=== PATIENT | female | born 1985 | race Caucasian/White ===

== ENCOUNTER 2021-06-24 16:41 | Emergency (ER) | payer OTHER, SELFPAY ==
[2021-06-24 16:58] VITALS: BP 109/93; PULSE 58; RESP 16; TEMP 36.5; O2SAT 100
--- NOTE | 2021-06-24 17:05 | ED.GENADULT ---
HPI - General Adult General Chief complaint: Urogenital-Female Stated complaint: POS UTI Source: patient Mode of arrival: ambulatory Limitations: no limitations History of Present Illness HPI narrative: 35 y/o female. PMHx: None reported. Presents to [facility] today with acute complaints of urinary frequency, bladder 'pressure' and dysuria for the past 48 hours. She reports to feel as though her s/s are similar to symptoms she had before when she had a UTI . No fever, chills. No abdominal pain, flank pain, N/V. No vaginal discharge or hematuria. Pt is w/o additional acute c/o illness upon exam. Related Data Allergies Allergy/AdvReac Type Severity Reaction Status Date / Time No Known Allergies Allergy Verified 06/24/21 17:02 Review of Systems Review of Systems: CONSTITUTIONAL: Denies fever, chills, sweats. EYES: Denies visual changes, redness, discharge. ENT: Denies rhinorrhea, congestion, sore throat, otalgia. CARDIOVASCULAR: Denies chest pain, palpitations, edema. RESPIRATORY: Denies dyspnea, wheezing, cough GASTROINTESTINAL: Denies abdominal pain, nausea, vomiting, diarrhea. GENITOURINARY: Positive dysuria, frequency, bladder pressure. No hematuria, abnormal discharge SKIN: Denies rash or itching. MUSCULOSKELETAL: Denies acute back pain, joint pain, or myalgia. NEUROLOGIC: Denies numbness, or focal weakness. PSYCHIATRIC: Denies anxiety or depression. All systems reviewed & are unremarkable except as noted in HPI and below Exam Narrative: GENERAL: This is a well-nourished, well-developed adult, in no apparent distress. HEAD: normocephalic, atraumatic. EYES: PERRL. Sclera clear/white. EARS: External ears normal, auditory canals clear and without drainage, TMs normal. NOSE: External nose normal. No Rhinorrhea, no obstruction, nares patent. THROAT: Mucous membranes moist, posterior pharynx clear. No exudates. NECK: Neck supple, non-tender without lymphadenopathy, masses or thyromegaly. CARDIOVASCULAR: Regular rate and rhythm without murmurs, gallops, or rubs. RESPIRATORY: Clear to auscultation. Breath sounds equal bilaterally. No wheezes, rales, or rhonchi. GASTROINTESTINAL: Abdomen soft, non-tender, nondistended. Bowel sounds are active. No guarding. No CVA tenderness. SKIN: warm, intact with no suspicious lesions or rash, good texture and turgor. NEURO: Alert, active, and age appropriate. No focal neurologic deficits. EXTREMITIES: Negative. Course Course Emergency Course: -35 y/o female. -PMHx none. -Urinary S/S. Proceed with Urine Dipstick. Vital Signs Vital signs: Vital Signs Temperature 36.5 C 06/24/21 16:58 Pulse Rate 58 L 06/24/21 16:58 Respiratory Rate 16 06/24/21 16:58 Blood Pressure 109/93 H 06/24/21 16:58 Pulse Oximetry 100 06/24/21 16:58 Temperature 36.5 C 06/24/21 16:58 Pulse Rate 58 L 06/24/21 16:58 Respiratory Rate 16 06/24/21 16:58 Blood Pressure 109/93 H 06/24/21 16:58 Pulse Oximetry 100 06/24/21 16:58 Medical Decision Making MDM Narrative Medical decision making narrative: -Urine dipstick positive for 1+ Leukocytes, no nitrites. 2+ blood. -Afebrile, no signs of acute abdomen or CVA tenderness. -Start Macrobid ATB regimen for UTI, Urine sent for full Cx analysis. -Pyridium prn for symptomatic relief. -PCP F/U 1 WK. -ER w/emergent health status changes. Pt agrees. Medical Records Medical records reviewed: Yes I reviewed the external patient's medical records. Vital Signs Vital Signs: Vital Signs Temperature 36.5 C 06/24/21 16:58 Pulse Rate 58 L 06/24/21 16:58 Respiratory Rate 16 06/24/21 16:58 Blood Pressure 109/93 H 06/24/21 16:58 Pulse Oximetry 100 06/24/21 16:58 Temperature 36.5 C 06/24/21 16:58 Pulse Rate 58 L 06/24/21 16:58 Respiratory Rate 16 06/24/21 16:58 Blood Pressure 109/93 H 06/24/21 16:58 Pulse Oximetry 100 06/24/21 16:58 Lab Data Lab results reviewed: Yes I reviewed
== END 2021-06-24 17:23 | disposition home or self-care (01) ==
PROVIDERS: Emergency Provider Nurse Practitioner Adult Health
DX: N39.0 Urinary tract infection, site not specified (principal)
CPT/HCPCS: 81003; 87077; 87086; 87088; 87186; 99213; G0463

== ENCOUNTER → 2022-06-26 07:58 | Outpatient (CLI) | payer OTHER, SELFPAY ==
--- NOTE | ~2022-06-26 | MR_ITS ---
EXAMINATION: MR knee RT wo con DATE: 06/26/2022 08:26 INDICATION: Right knee pain TECHNIQUE: Magnetic resonance imaging (MRI) of the right knee was performed without intravenous contr ast. Sequences included coronal PD-weighted FSE, coronal PD-weighted FS FSE, sagittal T2-weighted FS E, sagittal PD-weighted FS FSE and axial PD weighted fat saturated FSE. COMPARISON: None. FINDINGS: Medial compartment: Complex tear of the posterior horn of the medial meniscus which begins laterally along the free edge and extends obliquely in all 3 planes peripherally and medially along both the superior and inferior articular surfaces to the periphery of the junction of the body and posterior horn. 1.4 x 1.5 x 0.6 c m multilobulated ganglion cyst in the soft tissues along the anterior margin of the pes anserinus pot entially representing a prior labral cyst arising from the meniscal tear. Chondral surface regularity and likely shallow fissuring at the posterior weightbearing medial femoral condyle. Lateral compartment: Lateral meniscus is normal. Articular cartilage is normal. Patellofemoral compartment: Thickness chondral ulceration and deep fissuring at both the medial lateral patellar facets as well a s intervening apical ridge where there is mild subarticular edema-like signal change. Additional deep chondral fissuring at the cephalad aspect of the trochlear groove and scattered along the lateral tr ochlea where there is a tiny focus of subtle edema-like subarticular signal change. Ligaments and tendons: Posterior cruciate ligament is normal. Postoperative changes of prior anterior cruciate ligament denisse nstruction with patellar tendon autograft. Normal intact appearance of the graft. The medial collater al ligament and fibular collateral ligament complex are normal. The extensor mechanism is normal. The visualized medial and lateral hamstring tendons as well as the iliotibial band are normal. Fluid: Small right knee joint effusion. No loose osteochondral bodies identified. Osseous/other: Bone alignment is normal. No fracture or pathologic marrow replacing process. IMPRESSION: 1. Intact anterior cruciate ligament reconstruction utilizing patellar tendon autograft. 2. Complex tear at the posterior horn of the medial meniscus. 3. 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 Reviewed, dictated and finalized at [facility]. IMPRESSION: 1. Intact anterior cruciate ligament reconstruction utilizing patellar tendon a utograft. 2. Complex tear at the posterior horn of the medial meniscus. 3. Mild medial and patellofemoral osteoarthritis with extensive moderate high-g rade chondromalacia at the patellofemoral compartment.
== END ==
PROVIDERS: PCP Physician Assistant; Visit Provider Physician Assistant
DX: S83.511A Sprain of anterior cruciate ligament of right knee, initial encounter (principal); X58.XXXA Exposure to other specified factors, initial encounter; S83.231A Complex tear of medial meniscus, current injury, right knee, initial encounter; M17.11 Unilateral primary osteoarthritis, right knee
CPT/HCPCS: 73721

== ENCOUNTER 2022-08-07 11:53 | Emergency (ER) | payer OTHER, SELFPAY ==
[2022-08-07 12:09] VITALS: BP 122/85; PULSE 64; RESP 16; TEMP 36.9; O2SAT 100
--- NOTE | 2022-08-07 12:27 | ED.FEMALEGU ---
HPI - Female Genitourinary General Chief complaint: Urogenital-Female Stated complaint: uti symptoms Time Seen by Provider: 08/07/22 12:18 Source: patient, RN notes reviewed and old records reviewed Mode of arrival: ambulatory Limitations: no limitations History of Present Illness HPI Narrative: 36-year-old female who presents to [place] hospital care with complaints of frequency of urination, burning with urination, for 3 days with some supra pubic pressure and also some flank pain. Patient reports that she has had UTI before, denies any vaginal drainage or itching. Patient denies any concern for STD. Patient denies any fevers, chills, or sweats, patient denies any nausea or vomiting or diarrhea.Patient denies last menses 07/31/2022. Patient reports that she has increased her oral intake of water. MD elicited complaint: dysuria and UTI Pertinent past history: other (previous UTI) Onset (ago): day(s) (3) Related Data Home Medications Medication Instructions Recorded Confirmed vits no.[id number]-ferrous fum 1 tablet DAILY 08/07/22 08/07/22 28 mg iron-folic acid 800 mcg tablet (Classic ) Allergies Allergy/AdvReac Type Severity Reaction Status Date / Time No Known Allergies Allergy Verified 06/24/21 17:02 Review of Systems Review of Systems: CONSTITUTIONAL: Denies fever, chills, or sweats. EYES: Denies visual changes, redness, or discharge. ENT: Denies rhinorrhea, congestion, sore throat, or otalgia. CARDIOVASCULAR: Denies chest pain, palpitations, or edema. RESPIRATORY: Denies cough or dyspnea. GASTROINTESTINAL: Denies abdominal pain,reports some suprapubic tenderness, nausea, vomiting, or diarrhea. GENITOURINARY: Positive dysuria no visible hematuria. SKIN: Denies rash or itching. MUSCULOSKELETAL: Denies back pain, joint pain, or myalgia. NEUROLOGIC: Denies headache, numbness, or weakness. PSYCHIATRIC: Denies anxiety or depression. All systems reviewed & are unremarkable except as noted in HPI and below PMFSH Past Medical History Medical History (Updated 08/07/22 @ 13:18 by Anabel Walter NP) UTI (urinary tract infection) Surgical History Surgical History (Updated 08/07/22 @ 13:19 by Anabel Walter NP) History of repair of ACL bilateral knees and meniscus repair Social History Social History (Updated 08/07/22 @ 13:17 by Anabel Walter NP) Smoking status: Never smoker Alcohol intake: current Alcohol use details: Social Substance use type: does not use Living arrangements: with family Gender identity (if verbalized by the patient): Female Comments At time of signature, agree with nursing past medical, surgical, social and family history. There is no relevant family history pertinent to the presenting complaint Exam Narrative: GENERAL: Well-appearing, well-nourished, and in no acute distress. HEAD: Normocephalic, atraumatic. EYES: PERRLA and EOMI. ENT: Nares clear, no rhinorrhea or epistaxis. Mucous membranes moist.TM's normal with good light reflex, throat pink with no lesions or swelling NECK: Supple.no lymphadenopathy CHEST: Clear to auscultation. No respiratory distress.SAO2 100% on room air HEART: Regular rate and rhythm. No murmur heard. Normal peripheral pulses. ABDOMEN: Soft, tender suprapubic, nondistended, normal active bowel sounds,bilateral flank pain on examination denies any radiation of pain, urinary frequency,urgency, and and burning reported EXTREMITIES: Normal range of motion. No edema. SKIN: Warm, dry, no rash. NEURO: No focal deficits. Alert and oriented x3. Course Course Level of Care: Express Care Visit Vital Signs Vital signs: Vital Signs Temperature 36.9 C 08/07/22 12:09 Pulse Rate 64 08/07/22 12:09 Respiratory Rate 16 08/07/22 12:09 Blood Pressure 122/85 08/07/22 12:09 Pulse Oximetry 100 08/07/22 12:09 Temperature 36.9 C 08/07/22 12:09 Pulse Rate 64 08/07/22 12:09 Respiratory Rate 16 08/07/22 12:09
== END 2022-08-07 12:41 | disposition home or self-care (01) ==
PROVIDERS: Emergency Provider Registered Nurse
DX: N39.0 Urinary tract infection, site not specified (principal)
CPT/HCPCS: 81003; 87077; 87086; 87186; 99213; G0463

== ENCOUNTER 2022-09-09 15:43 | Emergency (ER) | payer OTHER, SELFPAY ==
[2022-09-09 15:46] VITALS: BP 112/84; PULSE 56; RESP 15; TEMP 36.6; O2SAT 100
--- NOTE | 2022-09-09 15:50 | ED.SKABFB ---
HPI - Skin/Abscess/Foreign Bdy General Chief complaint: Skin/Abscess/Foreign Body Stated complaint: RASH Time Seen by Provider: 09/09/22 15:50 Source: patient, RN notes reviewed and old records reviewed Mode of arrival: ambulatory Limitations: no limitations History of Present Illness HPI narrative: 36-year-old female presents to the [facility] with a rash to her bilateral medial aspect upper arms for several months that have been intermittent. This episode started several days ago. Spread into her bilateral breasts. States that she normally takes Zyrtec headache goes away. He denies any new creams, lotions, detergents. No new clothes. No new foods. Describes it as itching if not burning sometimes. Related Data Allergies Allergy/AdvReac Type Severity Reaction Status Date / Time No Known Allergies Allergy Verified 09/09/22 15:44 Review of Systems Review of Systems: All systems reviewed & are unremarkable except as noted in HPI and below Constitutional: Constitutional: Reports no additional constitutional complaints, Denies chills and Denies fever(s) Eyes: Eyes: Reports no additional eye complaints ENT: Reports system reviewed and no additional complaints, except as documented Cardiovascular: Cardiovascular: Reports no additional cardiovascular complaints Respiratory: Respiratory: Reports no additional respiratory complaints Gastrointestinal: Gastrointestinal: Reports no additional gastrointestinal complaints Musculoskeletal: Musculoskeletal: Reports no additional musculoskeletal complaints Integumentary/Breasts: Skin/Breast: Reports as per HPI and Reports rash Neurologic: Reports system reviewed and no additional complaints, except as documented Psychiatric: Psychiatric: Reports no additional psychiatric complaints Allergic/Immunologic: Allergic/Immunologic: Reports no additional allergic/immunologic complaints [facility] Past Medical History Medical History UTI (urinary tract infection) Surgical History Surgical History History of repair of ACL bilateral knees and meniscus repair Social History Social History Smoking status: Never smoker Alcohol intake: current Alcohol use details: Social Substance use type: does not use Gender identity (if verbalized by the patient): Female Comments At the time of my signature, I reviewed and agree with the nursing past medical, surgical, social, and family history. There is no relevant family history pertinent to the patient complaint. Exam Const: General: healthy appearing, no acute distress, alert and well nourished Nutritional Appearance: well nourished Orientation/consciousness: patient oriented x3 Limitations: no limitations HENMT: Head: normal to inspection Ears: external ears normal Face/Nose/Sinus: Normal external nose present Eyes: General: appearance normal, both eyes and all related structures Conjunctivae: conjunctivae normal Pupils: Equal, round and reactive pupils present Neck: Neck: normal visual inspection, no lymphadenopathy and no meningeal signs Chest: Chest palpation & inspection: normal inspection of the chest Resp: Effort & Inspection: normal respiratory effort and no use of accessory muscles Auscultation: clear to auscultation bilaterally, no crackles, no rales, no rhonchi and no wheezes Cardio: Rate: regular rate Rhythm: regular rhythm Skin: General skin exam: normal color Rashes: rashes noted (Bilateral upper arms medial aspect) Bilateral medial arms upper arrangement grouped, color (Skin color) with a non-erythematous base and surface dry, flaking, purpuric and rough; not erythematous, not indurated, not warm and without crusting; fluctuant not assessed Wounds: no wounds Other: Rash also extends across the top of breast Neuro: General: patient oriented
== END 2022-09-09 16:03 | disposition home or self-care (01) ==
PROVIDERS: Emergency Provider Nurse Practitioner; PCP Obstetrics & Gynecology
DX: L25.9 Unspecified contact dermatitis, unspecified cause (principal)
CPT/HCPCS: 99213; G0463

== ENCOUNTER 2023-02-11 17:12 | Emergency (ER) | payer OTHER, SELFPAY ==
[2023-02-11 17:15] VITALS: BP 119/81; PULSE 62; RESP 16; TEMP 36.6; O2SAT 100
--- NOTE | 2023-02-11 17:17 | ED.EAR ---
HPI - Ear Problem General Chief complaint: Ear Stated complaint: EARACHE Time Seen by Provider: 02/11/23 17:31 Source: patient and RN notes reviewed Mode of arrival: ambulatory Limitations: no limitations History of Present Illness HPI Narrative: 37-year-old female presents concern for right ear pain yesterday. She reports several day history of congestion, rhinorrhea, productive cough which she has been taking DayQuil. For she had a low-grade temperature this morning. She reports tinnitus, denies drainage from the ear MD Complaint: ear pain Related Data Allergies Allergy/AdvReac Type Severity Reaction Status Date / Time No Known Allergies Allergy Verified 02/11/23 17:22 Review of Systems Review of Systems: CONSTITUTIONAL: Denies malaise, chills,. Reports low-grade fever. EYES: Denies visual changes, redness, or discharge. ENT: Reports rhinorrhea, congestion. She sinus pain, and sore throat. Reports right ear pain CARDIOVASCULAR: Denies chest pain, palpitations, or edema. RESPIRATORY: Denies cough. Denies dyspnea. GASTROINTESTINAL: Denies abdominal pain, nausea, vomiting, diarrhea SKIN: Denies rash or itching. MUSCULOSKELETAL: Denies myalgia. NEUROLOGIC: Denies headache. All systems reviewed & are unremarkable except as noted in HPI and below PMFSH Past Medical History Medical History delivery delivered xs 3 UTI (urinary tract infection) Surgical History Surgical History H/O gynecological procedure Mirena 07/11/21 History of repair of ACL bilateral knees and meniscus repair Family History Family History Other Alzheimer's disease Malignant lymphoma Social History Social History (Updated 10/29/22 @ 08:22 by Ivett Chavez MA) Smoking status: Never smoker Alcohol intake: current Alcohol use details: Social Substance use type: does not use Living arrangements: with family Occupation/Education: occupation 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 There is no relevant family history pertinent to the presenting complaint Exam Narrative: GENERAL: Well-appearing, well-nourished, and in no acute distress. HEAD: Normocephalic EYES: PERRLA, conjunctivae clear ENT: Nares clear, turbinates edematous, clear discharge. Mucous membranes moist. TM pearly hughes with dull light reflex bilaterally; no tragal tenderness. Oropharynx not erythematous without lesions. Tonsils not enlarged and without exudate, no drooling, no hoarseness, no trismus, uvula midline. NECK: Supple. No lymphadenopathy CHEST: Clear to auscultation, breath sounds equal. No wheezing, rhonchi, rales, or stridor. No respiratory distress, speaks in full sentences. HEART: Regular rate and rhythm. No murmur heard. SKIN: Warm, dry, no rash. NEURO: Alert and oriented x3. PSYCH: Normal mood and affect Course Course Emergency Course: Patient is aware of diagnosis, understands and agrees to treatment plan. Anticipatory guidance given. Patient agrees to follow-up as directed and is aware of reasons to seek care at the emergency department. Portions of this record may have been created with voice recognition software Level of Care: Express Care Visit Vital Signs Vital signs: Reviewed. Medical Decision Making MDM Narrative Medical decision making narrative: Differential diagnosis considered: Childs virus, strep pharyngitis, allergic rhinitis, upper respiratory tract infection, sinusitis, rhinosinusitis, nasopharyngitis. viral pharyngitis, otitis media, otitis externa, otitis effusion, cerumen impaction, for
== END 2023-02-11 17:42 | disposition home or self-care (01) ==
PROVIDERS: Emergency Provider Nurse Practitioner
DX: H66.91 Otitis media, unspecified, right ear (principal)
CPT/HCPCS: 99213; G0463

== ENCOUNTER → 2024-01-04 08:44 | Outpatient (CLI) | payer OTHER, SELFPAY ==
--- NOTE | ~2024-01-04 | US_ITS ---
Pelvic ultrasound. Clinical History: Abnormal endocrine levels Technique: Realtime transabdominal and transvaginal scanning of the pelvis was performed. Color flow Doppler and Doppler spectral analysis were performed. Findings: The uterus is anteverted. The endometrial stripe has a thickness of 6 mm. IUD in satisfact ory position. No focal mass is identified. The right ovary measures 2.2 x 1.9 x 1.9 cm. No significant right ovarian or adnexal mass is seen. The left ovary measures 3.1 x 2.6 x 2.4 cm. No significant left ovarian or adnexal mass is seen. Vascular flow present in both ovaries on Doppler spectral analysis. There is no evidence of free fluid in the cul de sac. Impression: IUD in satisfactory position, otherwise no significant abnormality seen. Reviewed, dictated and finalized at [facility]. R DIPPER Impression: IUD in satisfactory position, otherwise no significant abnormality seen.
== END ==
PROVIDERS: PCP Obstetrics & Gynecology; Visit Provider Obstetrics & Gynecology
DX: R79.89 Other specified abnormal findings of blood chemistry (principal); Z97.5 Presence of (intrauterine) contraceptive device
CPT/HCPCS: 76830; 76856

== ENCOUNTER 2024-01-11 16:07 | Emergency (ER) | payer OTHER, SELFPAY ==
[2024-01-11 16:15] VITALS: BP 112/87; PULSE 53; RESP 16; TEMP 36.6; O2SAT 100
--- NOTE | 2024-01-11 16:46 | ED.URI ---
HPI - URI/Sore Throat General Chief Complaint: Upper Respiratory Infection Stated Complaint: Flu Symptoms Time Seen by Provider: 01/11/24 16:39 Source: patient and RN notes reviewed Mode of arrival: ambulatory Limitations: no limitations History of Present Illness HPI Narrative: Patient presents today with a one-week history of fatigue, cough, congestion. States she had a fever up to 102 initially, but this resolved several days ago. Reports her symptoms have started improving over the last 2 days. She was exposed to mononucleosis. She has been having some chronic symptoms recently in her PCP wanted her to be evaluated for COVID, flu, and mono. She has been taking some cold and flu medication with some mild relief. Denies shortness of breath or chest pain. Related Data Home Medications Medication Instructions Recorded Confirmed No Home Medications 01/11/24 01/11/24 Allergies Allergy/AdvReac Type Severity Reaction Status Date / Time adhesive AdvReac Mild Rash Verified 01/11/24 16:41 Review of Systems Review of Systems: CONSTITUTIONAL: Denies body aches, chills, or sweats.+ fatigue. Fever-resolved EYES: Denies visual changes, redness, or discharge. ENT: Denies rhinorrhea, sore throat, or otalgia.+ congestion CARDIOVASCULAR: Denies chest pain, palpitations, or edema. RESPIRATORY: Denies r dyspnea.+ cough GASTROINTESTINAL: Denies abdominal pain, nausea, vomiting, or diarrhea. GENITOURINARY: Denies dysuria or hematuria. SKIN: Denies rash, itching, or wounds. MUSCULOSKELETAL: Denies back pain, joint pain, or myalgia. NEUROLOGIC: Denies headache, numbness, tingling, or weakness. PSYCH: Denies depression or anxiety. [facility] Past Medical History Medical History delivery delivered xs 3 UTI (urinary tract infection) Surgical History Surgical History H/O gynecological procedure Mirena 07/11/21 History of repair of ACL bilateral knees and meniscus repair Family History Family History Sibling Skin cancer Other Alzheimer's disease Malignant lymphoma Social History Social History Smoking status: Never smoker Alcohol intake: current Alcohol use details: Social Substance use type: does not use Do You Feel Safe in your Home?: Yes Lack of Transportation: No Lack of Food: Never True Current Housing: I Have Housing Concerned About Future Housing: No Difficulty Paying Gas/Electric Bills: No Difficulty Paying for Meds: No Currently Unemployed: No Education: Master's Degree or Higher Difficulty w/ Childcare or Family Care: No Living arrangements: with family Occupation/Education: occupation 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 Please see nursing chart for further information. There is no relevant family history pertinent to the presenting complaint Exam Narrative: GENERAL: Well-appearing, well-nourished, and in no acute distress. HEAD: Normocephalic, atraumatic. EYES: EOMI. No redness or drainage. Conjunctivae normal. ENT: Mucous membranes pink and moist. Nares clear. No rhinorrhea. TMs normal bilaterally. Throat normal. Uvula midline. NECK: Normal AROM. Supple. No lymphadenopathy. CHEST: No respiratory distress. Clear to auscultation. HEART: Regular rate and rhythm. No murmur appreciated. EXTREMITIES: Normal range of motion. No edema. SKIN: Warm, dry, no rash. Capillary refill normal. Normal skin turgor. NEUR
== END 2024-01-11 16:52 | disposition home or self-care (01) ==
PROVIDERS: Emergency Provider Nurse Practitioner; PCP Obstetrics & Gynecology
DX: U07.1 COVID-19 (principal)
CPT/HCPCS: 36416; 86308; 87426; 87804; 99213; G0463

== ENCOUNTER 2024-02-09 09:00 | Outpatient (CLI) | payer OTHER, SELFPAY ==
--- NOTE | ~2024-02-09 | CT_ITS ---
EXAMINATION: CT abdomen wo con DATE: 02/09/2024 09:21 INDICATION: Elevated DHEA and testosterone TECHNIQUE: Computed tomography (CT) of the abdomen was performed without intravenous contrast. [facility] exposure control and iterative reconstruction technique were employed. Exam dose: 294.84 mGy-cm total exam DLP. COMPARISON: None. FINDINGS: The lung bases are clear. Normal heart size. No pericardial or pleural effusion. The liver, gallbladder, bile ducts, spleen, pancreas, pancreatic duct, and adrenal glands and kidneys appear normal. No renal calculus or hydronephrosis. Normal caliber of the abdominal aorta. No intraperitoneal or retroperitoneal mass lesion or adenopath y or ascites. There are nonspecific shotty nonenlarged periaortic and aortocaval lymph nodes. IMPRESSION: No adrenal hypertrophy or adrenal mass lesion is noted. (The ovaries are not included in this examination to evaluate for polycystic ovaries which may be ass ociated with elevated DHEA testosterone.) Reviewed, dictated and finalized at [facility]. Reviewed, dictated and finalized at [facility]. IMPRESSION: No adrenal hypertrophy or adrenal mass lesion is noted. (The ovaries are not included in this examination to evaluate for polycystic ov gema which may be associated with elevated DHEA testosterone.)
== END 2024-02-09 09:01 ==
LOC: GOSHIMG 09:01
PROVIDERS: PCP Obstetrics & Gynecology; Visit Provider Obstetrics & Gynecology
DX: R79.89 Other specified abnormal findings of blood chemistry (principal)
CPT/HCPCS: 74150

== ENCOUNTER 2025-08-19 13:31 | Emergency (ER) | payer OTHER, SELFPAY ==
[2025-08-19 13:50] VITALS: BP 113/75; PULSE 72; RESP 16; TEMP 36.3; O2SAT 98
[2025-08-19 13:58] LABS: EDUAAPPEAR Cloudy; EDUABILI Negative (Negative); EDUABLOOD Negative (Negative); EDUACOLOR1 Yellow; EDUAGLUCOSE Negative (Negative); EDUAKETONE Negative (Negative); EDUALEUKO Trace (Negative); EDUANITRATE Negative (Negative); EDUAPH 6.0; EDUAPROTEIN Negative (Negative); EDUASPGRAVITY 1.015; EDUAUROBILI 0.2
--- NOTE | 2025-08-19 14:04 | ED.FEMALEGU ---
HPI - Female Genitourinary General Chief complaint: Urogenital-Female Stated complaint: Uti Symptoms Patient presents to the office with bladder pressure and frequent urination that began over the last couple days. Patient does report she is currently 25 weeks and does feel like baby is slightly low. Noted that she does have a scheduled appointment with Ob in 4 days. Denies any complications with . Denies history of frequent or hard to treat UTIs. Denies abdominal pain, vaginal bleeding, vaginal discharge, fever, chills, body aches, or lower back pain. Related Data Home Medications ?Medication ?Instructions ?Recorded ?Confirmed ?Last Taken ?Type estradiol 1 mg tablet (Estrace) 1 mg PO BID 09/02/24 Unknown History Allergies Allergy/AdvReac Type Severity Reaction Status Date / Time adhesive AdvReac Mild Rash Verified 09/02/24 14:42 Review of Systems Constitutional: Constitutional: Reports as per HPI, Denies chills and Denies fatigue Eyes: Eyes: Reports no additional eye complaints ENT: Reports system reviewed and no additional complaints, except as documented Cardiovascular: Cardiovascular: Reports no additional cardiovascular complaints Respiratory: Respiratory: Reports no additional respiratory complaints Gastrointestinal: Gastrointestinal: Reports as per HPI, Denies abdominal pain, Denies diarrhea, Denies nausea and Denies vomiting Genitourinary: Genitourinary: Reports as per HPI, Denies abnormal vaginal bleeding, Denies hematuria, Reports nocturia, Denies genital lesions, Denies dysuria, Denies pelvic pain, Denies flank pain, Denies urinary incontinence and Denies vaginal discharge Musculoskeletal: Musculoskeletal: Reports as per HPI, Denies back pain and Denies myalgias Integumentary/Breasts: Skin/Breast: Reports system reviewed and no additional complaints, except as docu Neurologic: Reports system reviewed and no additional complaints, except as documented Psychiatric: Psychiatric: Reports no additional psychiatric complaints Endocrine: Endocrine: Reports no additional endocrine complaints Hematologic/Lymphatic: Hematologic/Lymphatic: Reports no additional hematologic/lymphatic complaints Allergic/Immunologic: Allergic/Immunologic: Reports no additional allergic/immunologic complaints PMFSH Past Medical History Medical History delivery delivered xs 3 UTI (urinary tract infection) Surgical History Surgical History H/O gynecological procedure Mirena 07/11/21 History of repair of ACL bilateral knees and meniscus repair Family History Family History Sibling Skin cancer Other Alzheimer's disease Malignant lymphoma Social History Social History Smoking status: Never smoker Alcohol intake: current Alcohol use details: Social Substance use type: does not use Do You Feel Safe in your Home?: Yes Lack of Transportation: No Lack of Food: Never True Current Housing: I Have Housing Concerned About Future Housing: No Difficulty Paying Gas/Electric Bills: No Difficulty Paying for Meds: No Currently Unemployed: No Education: Master's Degree or Higher Difficulty w/ Childcare or Family Care: No Living arrangements: with family Occupation/Education: occupation 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 Gender identity (if verbalized by the patient): Female Sexual Orientation (if Verbalized by the Patient): Straight or Heterosexual Exam Const: General: healthy appearing and no acute distress Nutritional Appearance: well nourished Orientation/consciousness: patient oriented x3 Limitations: no limitations Resp: Effort & Inspection: normal respiratory effort Auscultation: clear to auscultation bilaterally Cardio: Rate: regular rate Rhythm: regular rhythm GI: Inspection: non-distended GI Palp: Yes Soft to palpation, No Tenderness to palpation present (GI) and No Guarding due to palpation present (GI) Auscultation: normal bowel sounds : General: Yes bladder normal to palpation and Yes no CVA tenderness Back/Spine/Pelvis: Back: no CVA tenderness Skin: General skin exam: normal color Rashes: no rashes Wounds: no wounds Neuro: General: patient oriented x3 Speech: normal speech Gait exam (Neuro): Normal gait present Extrem: General: normal to inspection, no clubbing, cyanosis or edema and no pedal edema Psych: Appearance: grossly normal Mental Status: mental status grossly normal Affect: normal affect Attitude: cooperative Course Course Level of Care: Express Care Visit Vital Signs Vital signs: Vital Signs Temperature 97.4 F L 08/19/25 13:50 Pulse Rate 72 08/19/25 13:50 Respiratory Rate 16 08/19/25 13:50 Blood Pressure 113/75 08/19/25 13:50 Pulse Oximetry 98 08/19/25 13:50 Temperature 97.4 F L 08/19/25 13:50 Pulse Rate 72 08/19/25 13:50 Respiratory Rate 16 08/19/25 13:50 Blood Pressure 113/75 08/19/25 13:50 Pulse Oximetry 98 08/19/25 13:50 MDM - Female Genitourinary MDM Narrative Medical decision making narrative: UA obtained. No blood, protein or ketones noted. Patient currently will treat for UTI The patient was evaluated by myself in the [facility] care. History is obtained from patient who is an independent historian and physical exam was performed. Available medical records were reviewed at this time. Exam findings show no acute concerns or changes; patient is non-toxic appearing and is in no distress. Patient is appropriate for outpatient treatment and follow-up. I have evaluated and discussed social determinants of health with the patient that could potentially impact subsequent diagnosis and treatment plans. Differential diagnosis and treatment plan were discussed with the patient. Patient agrees with discussion and after shared medical decision making agrees with plan of care. All questions were answered to the patient's satisfaction. Differential Diagnosis Differential diagnosis: Likely urinary tract infection, cervicitis, vaginitis and cystitis Medical Records Attestation: I reviewed the patient's medical records. Lab Data Attestation: I reviewed the patient's lab results. Labs: Lab Results 08/19/25 Range/Units 13:55 POC Urine Color Yellow POC Urine Clarity Cloudy POC Urine pH 6.0 POC Ur Specif [place] 1.015 POC Urine Protein Negative (Negative) POC Ur Glucose (UA) Negative (Negative) POC Urine Ketones Negative (Negative) POC Urine Blood Negative (Negative) POC Urine Nitrite Negative (Negative) POC Urine Bilirubin Negative (Negative) POC Urine Urobilinogen 0.2 POC U Leukocyte Esteras Trace (Negative) Discharge Plan Discharge Clinical Impression: Cystitis Patient Disposition: Home Condition: Stable Instructions: Antibiotic Form, Urinary Tract Infection in (ED) Additional Instructions: We will send a urine culture off to the lab; if the culture identifies an organism that the prescribed antibiotic will not treat, you will receive a phone call from an urgent care staff member and an appropriate antibiotic will be prescribed. -Your symptoms should begin to improve within a day of starting antibiotics. But you should finish all the antibiotic pills you get. Otherwise your infection might come back. -Also recommend: drink more fluid. It might help flush out germs, and it does no harm -Tylenol as needed for pain -Follow-up with your primary care provider for urine recheck OR if your symptoms persist, change or worsen significantly before you can contact your personal physician then please, without delay, go to the emergency department for further evaluation. Patient Language: Albanian Prescriptions: New nitrofurantoin monohyd/m-cryst [Macrobid] 100 mg capsule 100 mg PO Q12H 5 Days Qty: 10 0RF Rx Instructions: must administer with a meal/food No Action estradiol [Estrace] 1 mg tablet 1 mg PO BID Follow-up/Referrals: Nhan Slater MD [Primary Care Provider, AIRPLANE DESIGNER] Time of Disposition: 14:08
== END 2025-08-19 14:10 | disposition home or self-care (01) ==
PROVIDERS: Emergency Provider Nurse Practitioner Family; PCP Obstetrics & Gynecology
DX: O23.12 Infections of bladder in pregnancy, second trimester (principal); N30.90 Cystitis, unspecified without hematuria; Z3A.25 25 weeks gestation of pregnancy
CPT/HCPCS: 81003; 87086; 99213; G0463

== ENCOUNTER 2025-09-08 11:15 | Outpatient (RCR) | payer OTHER, SELFPAY ==
--- OUTSIDE RECORDS SUMMARY | 2025-09-07 09:42 | XMS_ITS | Encounter Summary ---
Author Organization [facility] Address [address] [place] [address] Phone Care Team Providers Care Overedger Name Role Phone Unknown, Notinfile Primary Care Provider Unavail able Jose Redding Unavailable [phone] Nicole Kraft NP Primary Care Provider [phone] Morenita Gale MD Unavailable Encounter Details Date Type Department Care Team (Latest Contact Info) Description 12/23/2023 Orders Only [facility] EML Scanning, Provider Social History Tobacco Use Types Packs/Day Years Used Date Smoking Tobacco: Never Smokeless Tobacco: Never AUDIT-C Answer Date Recorded Q1: How often do you have a drink containing alc ohol? Monthly or less 07/03/2022 Q2: How many drinks containi ng alcohol do you have on a typical day when you are drinking? 1 or 2 07/03/2022 Q3: How often do you have si x or more drinks on one occasion? 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 Gender Identity Not on file Sexual Orientation Not on file documented as of this encounter Plan of Treatment Not on file documented as of this encounter Procedures Procedure Name Priority Date/Time Associated Diagnosis Comments SCAN - LABS 12/23/2023 documented in this encounter Results * SCAN - LABS (12/23/2023) us Provider Scanning Final Result documented in this encounter Visit Diagnoses Not on filedocumented in this encounter Care Teams Overedger Relationship Specialty Start Date End Date Unknown, Notinfile PCP - General 06/19/22 03/14/24 Nicole Kraft NP [address] [place] [address] PCP - General Family Medicine 03/15/24 Jose Redding PA [address] [place] [address] Physician Tooth Cutter Orthopedic Surgery 07/03/22 Morenita Gale MD [address] [place] [address] Obstetrics and Gynecology 03/15/24 documented as of this encounter
--- OUTSIDE RECORDS SUMMARY | 2025-09-07 09:42 | XMS_ITS | Encounter Summary ---
Author Organization [facility] Address [address] [place] [address] Phone Care Team Providers Care Stream Control Officer Name Role Phone Jose Redding Unavailable [phone] Nicole Kraft NP Primary Care Provider [phone] Morenita Gale MD Unavailable [phone] Encounter Details Date Type Department Care Team (Latest Contact Info) Description 03/17/2024 Orders Only [facility] EML Scanning, Provider Social History Tobacco Use Types Packs/Day Years Used Date Smoking Tobacco: Never Cigarettes Smokeless Tobacco: Never AUDIT-C Answer Date Recorded Q1: How often do you have a drink containing alc ohol? Monthly or less 07/03/2022 Q2: How many drinks containi ng alcohol do you have on a typical day when you are drinking? 1 or 2 07/03/2022 Q3: How often do you have si x or more drinks on one occasion? 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 Gender Identity Not on file Sexual Orientation Not on file documented as of this encounter Plan of Treatment Not on file documented as of this encounter Procedures Procedure Name Priority Date/Time Associated Diagnosis Comments SCAN - LABS 03/17/2024 documented in this encounter Results * SCAN - LABS (03/17/2024) us Provider Scanning Final Result documented in this encounter Visit Diagnoses Not on filedocumented in this encounter Care Teams Stream Control Officer Relationship Specialty Start Date End Date Nicole Kraft NP [address] [place] [address] PCP - General Family Medicine 03/15/24 Jose Redding PA [address] [facility] [place] [address] Physician Slitter Creaser Slotter Helper Orthopedic Surgery 07/03/22 Morenita Gale MD [address] [place] [address] Obstetrics and Gynecology 03/15/24 documented as of this encounter
--- OUTSIDE RECORDS SUMMARY | 2025-09-07 09:42 | XMS_ITS | Clinical Summary ---
Author Organization [address] Address [address] [place] [address] Care Team Providers Care Tire Buffer Name Role Phone Jose Redding Unavailable Nicole Kraft NP Primary Care Provider [phone] Morenita Gale MD Unavailable [phone] Allergies Active Allergy Reactions Criticality Noted Date Comments Adhesive Rash Medium 12/06/2015 Medications biotin 1 mg capsule Take by mouth Active cholecalciferol (VITAMIN D-3) 5,000 unit capsule Take 1 capsule (5,000 Units total) by mouth daily Active ascorbic acid (ascorbic acid with ari hips) 500 mg tablet,chewable Take 1 tablet/chew tab (500 mg total) by mouth daily Active ferrous sulfate 325 mg (65 mg of elemental iron) tabletIndicatio ns:Iron Deficiency Anemia Take 65 mg of elemental iron by mouth daily with breakfast Active zinc 50 mg tablet Take by mouth Active ondansetron (ZOFRAN) 4 mg tabletIndicatio ns:Prevention of Post-Operative Nausea and Vomiting Take 1 tablet (4 mg total) by mouth every 6 (six) hours as needed for nausea or vomiting 20 tablet 1 2 Active Additional Information Patient not taking.Reported on 03/15/2024 aspirin 81 mg enteric coated tabletIndicatio ns:prevention of thrombosis Take 1 tablet (81 mg total) by mouth 2 (two) times a day for 14 days 28 tablet 2 Active Additional Information Patient not taking.Reported on 06/13/2024 HYDROcodone-marino taminophen (NORCO) 5-325 mg per tabletIndicatio ns:Pain Take 1 tablet by mouth every 6 (six) hours as needed for pain 15 tablet 2 Active Additional Information Patient not taking.Reported on 03/15/2024 mv,iron,min-fol ic acid-biotin 66.7-1,666.7 mcg capsule Take 1 tablet by mouth daily Active levonorgestreL (MIRENA) IUD 1 each by intrauterine route once Active Active Problems Problem Noted Date Diagnosed Date Complex tear of medial meniscus of right knee Overview (07/02/2022): Added automatically from request for surgery [id number] Menorrhagia with regular cycle 09/10/2020 Thrombocytopenia affecting 04/15/2018 Overview (06/23/2022): Repeat at 36 wks Dermatitis due to unknown cause 07/01/2017 Dermatographic urticaria 07/01/2017 Immunizations Immunization Administration Dates Next Due DTP 05/23/1993, 9,10/03/1988,07/02,04/23/1988 Influenza, Quadrivalent, Spl it, Preservative Free, Intramuscular 09/18/2022,10/29/2018 Influenza, Trivalent, IM (MDV) 09/01/2021 Influenza, Trivalent, Preser vative Free, Intramuscular 09/13/2015,08/09/2015 MMR 10/29/2018,05/23/1993,06/26/1989 OPV 05/23/1993, 9,10/03/1988,07/02,04/23/1988 Pfizer SARS-CoV-2 Monovalent Vaccination (12+ Yrs) PURPLE 02/21/2021 Tdap 09/13/2015,08/08/2015,07/15/2013 Surgical History Surgery Date Site/Laterality Comments SECTION x 3 ARTHROSCOPIC REPAIR ACL Right JOINT REPLACEMENT Knee Surgeries (3) Medical History Medical History Date Comments Anxiety Family History Medical History Relation Name Comments neuroactodermal tumor Father Bandar Villa sarcoma Father Bandar Villa Alzheimer's disease Maternal Grandmother Jia Rose y Miscarriages / Stillbirths Mother Sandi Chen max Cancer Paternal Grandmother Ellen Villa Relation Name Status Comments Father Bandar Villa Maternal Grandmother Jia Cochran Mother Sandi Villa Paternal Grandmother Ellen Villa Social History Tobacco Use Types Packs/Day Years Used Date Smoking Tobacco: Never Smokeless Tobacco: Never Tobacco Cessation:Counseling Given: Not Answered AUDIT-C Answer Date Recorded Q1: How often [...] on file 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 Gender Identity Not on file Sexual Orientation Not on file Obstetrics History Last Filed Vital Signs Vital Sign Reading Time Taken Comments Blood Pressure 116/77 06/13/2024 9:57 AM CDT Pulse 59 06/13/2024 9:57 AM CDT Temperature 36.5 C (97.7 F) 03/15/2024 11:48 AM CDT Respiratory Rate 18 07/03/2022 3:40 PM CDT Oxygen Saturation 99% 03/15/2024 11:48 AM CDT Inhaled Oxygen Concentration - - Weight 85.3 kg (188 lb) 06/13/2024 9:57 AM CDT Height 167.6 cm (5' 6) 06/13/2024 9:57 AM CDT Body Mass Index 30.34 06/13/2024 9:57 AM CDT Plan of Treatment Health Maintenance Due Date Last Done Comments Hepatitis C Screening 1987 Hepatitis B Screening 2005 Regular Well Visit/Exam 18-64 2005 HPV Vaccines (1 - 3-dose SCDM series) 2014 Varicella Vaccines (1 of 2 - 13+ 2-dose series) 11/26/2018 Cervical Cancer Screening 08/23/2024 08/23/2023 Depression Screening 03/15/2025 03/15/2024 Covid-19 Vaccine ( season) 2025 02/26/2021, 02/21/2021, 02/05/2021 Influenza Vaccine (#1) 2025 , 09/01/2021, 10/29/2018, Additional history exists DTaP/Tdap/Td Vaccine (9 - Td or Tdap) 09/13/2025 09/13/2015, 08/08/2015, 07/15/2013, Additional history exists Pneumococcal vaccine <65 Aged Out No longer eligible based on patient's age to complete this topic Insurance [facility] HMO [facility] HMO/POS [employer] COVENTRY HMO/POS Care Teams Tire Buffer Relationship Specialty Start Date End Date Nicole Kraft NP [address] [facility] [address] [place] [address] PCP - General Family Medicine 03/15/24 Jose Redding PA [address] [place] [address] Physician Environmental Control Administrator Orthopedic Surgery 07/03/22 Morenita Gale MD [address] [place] [address] Obstetrics and Gynecology 03/15/24
[2025-09-07 10:17] LABS: Syphilis IgG/IgM Antibody Non-Reactive (Nonreactive)
[2025-09-07 10:37] LABS: Hematocrit 33.7 % (37.0-47.0); Hemoglobin 11.2 g/dL (12.0-15.0)
[2025-09-07 11:01] LABS: Glucose 1 Hour PP 50gm Dose 126 mg/dL
[2025-09-07 11:40] LABS: HIV 1/2 Ab P24 Ag Result Negative (Negative)
[2025-09-08] MEDS: RHO(D) IMMUNE GLOBULIN 300 MCG/2 ML SYRINGE IM (12:32)
== END 2025-09-08 11:20 | disposition home or self-care (01) ==
LOC: ANHLAB 11:15
PROVIDERS: PCP Obstetrics & Gynecology; Visit Provider Obstetrics & Gynecology
DX: Z11.4 Encounter for screening for human immunodeficiency virus [HIV] (principal); Z11.3 Encounter for screening for infections with a predominantly sexual mode of transmission; Z29.13 Encounter for prophylactic Rho(D) immune globulin; O36.0130 Maternal care for anti-D [Rh] antibodies, third trimester, not applicable or unspecified; Z3A.00 Weeks of gestation of pregnancy not specified
CPT/HCPCS: 36415; 82947; 85014; 85018; 85461; 86593; 86703; 86850; 86900; 86901; 90384; 96372; G0432; J2790